=== PATIENT | male | born 1995 | race Caucasian/White ===

== ENCOUNTER 2020-06-30 13:32 | Emergency (ER) | payer OTHER, SELFPAY ==
--- NOTE | ~2020-06-30 | US_ITS ---
EXAMINATION: US VENOUS ULTRASOUND WITH DOPPLER LOWER EXTREMITY, LEFT CLINICAL INFORMATION: Left lower extremity/calf pain. COMPARISON: None TECHNIQUE: Ultrasound of the deep veins is performed from the hip to the calf with compression sonography and color and pulse Doppler assessment. Spectral analysis with color-flow imaging is performed. FINDINGS: There is normal venous compression and respiratory variation and augmented flow. The visualized common femoral vein, superficial femoral vein, profunda femoral vein, popliteal vein, and the trifurcation region shows no evidence of deep venous thrombosis. There is no significant popliteal fossa cyst. If the patient's symptoms persist, followup ultrasound in 5 days 7 days might be of value to exclude proximal propagation from a non-visualized calf vein. US/US venous duplex LE LT IMPRESSION: No DVT demonstrated in the left lower extremity.
[2020-06-30 13:36] VITALS: BP 126/84; PULSE 118; RESP 16; TEMP 37.1; O2SAT 97; BMI 24.9
--- NOTE | 2020-06-30 15:00 | ED.EXTPRO ---
HPI - Extremity Problem General Chief complaint: Extremity Problem Stated complaint: L LEG FOOT PAIN Time Seen by Provider: 06/30/20 13:52 Source: patient Mode of arrival: ambulatory Limitations: no limitations History of Present Illness HPI Narrative: 25 y/o male presenting with left calf pain that started last night when he was walking around at work. He states by the time he ended his shift he was limping out to his car. He denies any known injury or trauma to his leg. He denies hearing or feeling any popping sensation. He denies any skin changes including bruising, redness or warmth. He denies chest pain or SOB. No ankle or knee pain. No numbness, tingling. He is barely able to walk and has significant difficulty with dorsiflexion and plantar flexion. MD Complaint: extremity pain Onset (ago): day(s) (1) Pain Consistency: constant Location: left and lower extremity Severity scale (1-10): 9 Quality: sharp Radiation: proximal Relieving factors: nothing Exacerbating factors: exertion Associated symptoms: denies other symptoms Related Data Previous Rx's Medication Instructions Recorded ibuprofen 800 mg PO Q8H PRN #15 tab 06/30/20 Allergies Allergy/AdvReac Type Severity Reaction Status Date / Time No Known Allergies Allergy Verified 06/30/20 14:23 [No Known Allergies*] Review of Systems Review of Systems: Constitutional: No Fever, No Chills Cardiovascular: No Chest Pain, No SOB Respiratory:No dyspnea Gastrointestinal: No Nausea, No Vomiting Musculoskeletal: No joint pain, + Myalgias Skin: No Skin Lesions, No rash Neuro: + Weakness (cannot plantar flex well), No Numbness Heme/Lymph: No Bruising PMFSH Past Medical History Attestation statement: The following information was validated with the patient. Medical History (Updated 06/30/20 @ 15:31 by SYLVIA Krishnamurthy) Asthma Social History Social History Advance Directives: No Advance Directives Information Provided: Yes Physical Exam Vital Signs: Vital Signs: Last Vital Signs Temp 98.8 F 06/30/20 13:36 Pulse 118 H 06/30/20 13:36 Resp 16 06/30/20 13:36 BP 126/84 06/30/20 13:36 Pulse Ox 97 06/30/20 13:36 Body Mass Index 24.9 Appearance: Alert. Oriented X3. No acute distress. HEENT: normal inspection CVS: Normal heart rate and rhythm. Pulses normal. Respiratory: No respiratory distress. Skin: Skin warm and dry. Normal skin color. Normal skin turgor. No rashes. Extremities: normal appearing left lower leg. tender posterior calf with medial>lateral gastrocnemius tenderness, no skin changes. Achilles tendon palpable. negative Oneil test. NV intact distally. Limited plantar and dorsiflexion of the foot. normal left ankle, no tenderness, normal left knee, normal ROM. Neuro: Oriented X 3. No sensory deficit. Course Course Course Narrative: 25 y/o male presenting with non-traumatic left calf pain x1 day with limited dorsiflexion and plantarflexion. Achilles tendon is palpable with negative Oneil test. Possible partial Achilles tear vs partial gastrocnemious tear vs DVT. U/S ordered to r/o DVT. Reevaluation(s) Reevaluation #1: LE doppler negative for DVT. Given his limited mobility and pain with ambulation, will splint and have him follow up with Orthopedics; concern for possible partial Achilles or gastroc tear. Case was d/w Radha Rojas PA-C from Ortho. Splint and f/u recommended. WBAT. Splint and crutches ordered. Patient aware of plan. Reevaluation #2: Splint placed by tech and is in adequate position. Cap refill <3 sec, +mobility of toes, no numbness. Crutches provided. Stable for discharge with outpatient follow up with Ortho. Consultations Consultation #1: Ortho - Radha Rojas Critical Care Time Critical Care Time Critical Care Time: No Discharge Plan Discharge Clinical Impression: Pain of left calf Patient Disposition: Home, Self-Care Instructions: Tendon Rupture (ED), Leg Pain (ED) Additional Instructions: Your ultrasound is negative for blood clot. Your exam goes against complete rupture of your tendon in your leg but you may have a small or partial tear. Wear the splint that was applied and use crutches until you are evaluated by Orthopedics this week. Elevate you leg when possible and use ice several times per day. Take the prescribed anti-inflammatory as needed for pain. If you have worsening pain or develop swelling or numbness, come back to the ER for further evaluation. Prescriptions: New ibuprofen 800 mg tablet 800 mg PO Q8H PRN (Reason: pain) Qty: 15 RF: 0 Referrals: Dann Rojas PA-C [Physician [employer]] - 2 days (left calf pain)
== END 2020-06-30 16:14 | disposition home or self-care (01) ==
PROVIDERS: Emergency Provider Emergency Medicine
DX: S89.92XA Unspecified injury of left lower leg, initial encounter (principal); R60.0 Localized edema; X58.XXXA Exposure to other specified factors, initial encounter; Y93.9 Activity, unspecified; Y92.9 Unspecified place or not applicable; Y99.9 Unspecified external cause status
CPT/HCPCS: 29515; 93971; 99283

== ENCOUNTER → 2020-07-10 14:59 | Outpatient (BNVA) | payer OTHER, SELFPAY | PROVIDERS: Visit Provider Physician Assistant | DX: S86.112A Strain of other muscle(s) and tendon(s) of posterior muscle group at lower leg level, left leg, initial encounter (principal) | CPT/HCPCS: 99202 ==

== ENCOUNTER → 2020-08-07 13:47 | Outpatient (BNVA) | payer OTHER, SELFPAY | PROVIDERS: Visit Provider Physician Assistant | DX: S86.112A Strain of other muscle(s) and tendon(s) of posterior muscle group at lower leg level, left leg, initial encounter (principal); X58.XXXA Exposure to other specified factors, initial encounter; Y93.9 Activity, unspecified; Y92.9 Unspecified place or not applicable; Y99.8 Other external cause status; J45.909 Unspecified asthma, uncomplicated | CPT/HCPCS: 99212 ==

== ENCOUNTER 2020-08-15 09:47 | Outpatient (REF) | payer OTHER, SELFPAY ==
--- NOTE | ~2020-08-15 | MR_ITS ---
EXAMINATION: MRI ANKLE WITHOUT CONTRAST, LEFT CLINICAL INFORMATION: Posterior ankle pain COMPARISON: None TECHNIQUE: MRI of the ankle without contrast is performed in a 1.5 Elinor high-field scanner. FINDINGS: BONE/JOINTS: Marrow signal is within normal limits. No evidence of fracture. No talar osteochondral lesion seen. No significant arthropathy is evident. MUSCLES/TENDONS: Medial flexor, peroneal, extensor tendons are intact. LIGAMENTS: Talofibular, tibiofibular, calcaneofibular, deltoid ligaments intact. Questionable mild remote sprain anterior talofibular ligament. ACHILLES TENDON: Intact. PLANTAR FASCIA: Intact. SINUS TARSI: Normal signal. TARSAL TUNNEL: No mass lesion. MR/MR ankle LT wo con IMPRESSION: 1. No evidence of acute osseous abnormality. 2. Ligaments appear intact. Questionable sequela of mild remote sprain of the anterior talofibular ligament. 3. Tendons appear intact.
== END 2020-08-15 09:48 | disposition home or self-care (01) ==
LOC: HO.MRI 09:47
PROVIDERS: Visit Provider Physician Assistant
DX: S86.112A Strain of other muscle(s) and tendon(s) of posterior muscle group at lower leg level, left leg, initial encounter (principal)
CPT/HCPCS: 73721

== ENCOUNTER → 2020-08-28 09:55 | Outpatient (BNVA) | payer OTHER, SELFPAY | PROVIDERS: Visit Provider Physician Assistant | DX: S86.112D Strain of other muscle(s) and tendon(s) of posterior muscle group at lower leg level, left leg, subsequent encounter (principal); S93.409D Sprain of unspecified ligament of unspecified ankle, subsequent encounter | CPT/HCPCS: 99212 ==

== ENCOUNTER 2020-09-04 09:57 | Outpatient (RCR) | payer OTHER, SELFPAY ==
--- NOTE | 2020-09-04 13:20 | MHC.PT.EP ---
[facility] [place] Office [place] Office [place] Office [address] Bernardino Ahuja [address] [phone] F: [phone] F: [phone] F: [phone] F: [phone] Physical Therapy Plan of Care Date of Evaluation: Date of Surgery: NA Diagnosis: L GASTROCENEMIUS STRAIN Assessment: Pt IS 25 YO M REFERRED TO PT FROM ORTHO([facility]) WITH GASTROCNEMIUS STRAIN ON L. Pt REPORTS NO SPECIFIC INJURY BUT WAS VERY BUSY (MOVING AND AT WORK) ABOUT 2 MONTHS AGO WITH NOTED PAIN AND INABILITY TO NEGOTIATE STAIRS. Pt HAD MRI ( MR/MR ankle LT wo con IMPRESSION: 1. No evidence of acute osseous abnormality. 2. Ligaments appear intact. Questionable sequela of mild remote sprain of the anterior talofibular ligament. 3. Tendons appear intact.) Pt WAS TOLD HE MAY HAVE A SMALL TEAR AT ACHILLES TENDON. PRESENTS WITH LIMITED ANKLE ROM AND STRENGTH. NO NOTABLE SWELLING. HAS ANTALGIC GT WITH WALKING BOOT. HAS BEEN INSTRUCTED BY ORTHO TO WEAN FROM BOOT WHICH HE REPORTS HE IS SLOWLY DOING AT HOME BUT CONTINUES USE OF BOOT WHILE AT WORK. SHOULD BENEFIT FROM PT TO ADDRESS THESE ISSUES Frequency and Duration: The patient will be seen 2X/WK X 6 WKS Short Term Goals: 1. I HEP WITH DC EX PLAM 2. GT WITHOUT BOOT WITH NO LIMP 3. INCREASED AWARENESS ANKLE CARE WITH I TAPING IF INDICATED Correction Goals: 1. INCREASED L ANKLE ROM 10-20 DEGREES T/O 2. INCREASED L ANKLE STRENGTH 1/2 - 1 MM GRADE 3. DECREASED L ANKLE PAIN AT LEAST 50% WITH ADLS Treatment Plan: Modalities to reduce pain, spasms and effusion. Manual therapy to restore motion and function. Therapeutic exercise to improve strength and flexibility. Neuromuscular re-education for posture and balance. Therapeutic activities to return to functional activities of daily living. Electronically signed by: MANDY SOLER PT Please sign and return to therapist. Thank you for your referral.
--- NOTE | 2020-10-28 11:13 | MHC.PT.DC ---
[facility] [place] Office [place] Office [place] Office [address] Bernardino Ahuja [address] [phone] F: [phone] F: [phone] F: [phone] F: [phone] Physical Therapy Discharge Report Diagnosis: L GASTROCENEMIUS STRAIN Date of Surgery: NA Date of Evaluation: 09/04/20 Date of Discharge: 10/28/20 Treatments to Date: 1 Cancellations to Date: No Shows to Date: 2 Discharge Status: Visit Non-compliance Discharge Summary: Pt SEEN FOR IN EVAL THEN NO SHOWED FOR HIS NEXT 2 APPTS. AT IN [place], PER ASSESSMENT: Pt IS 25 YO M REFERRED TO PT FROM ORTHO([facility]) WITH GASTROCNEMIUS STRAIN ON L. Pt REPORTS NO SPECIFIC INJURY BUT WAS VERY BUSY (MOVING AND AT WORK) ABOUT 2 MONTHS AGO WITH NOTED PAIN AND INABILITY TO NEGOTIATE STAIRS. Pt HAD MRI ( MR/MR ankle LT wo con IMPRESSION: 1. No evidence of acute osseous abnormality. 2. Ligaments appear intact. Questionable sequela of mild remote sprain of the anterior talofibular ligament. 3. Tendons appear intact.) Pt WAS TOLD HE MAY HAVE A SMALL TEAR AT ACHILLES TENDON. PRESENTS WITH LIMITED ANKLE ROM AND STRENGTH. NO NOTABLE SWELLING. HAS ANTALGIC GT WITH WALKING BOOT. HAS BEEN INSTRUCTED BY ORTHO TO WEAN FROM BOOT WHICH HE REPORTS HE IS SLOWLY DOING AT HOME BUT CONTINUES USE OF BOOT WHILE AT WORK. SHOULD BENEFIT FROM PT TO ADDRESS THESE ISSUES Electronically signed by: MANDY SOLER PT Please sign and return to therapist. Thank you for your referral.
== END 2020-10-28 11:14 | disposition home or self-care (01) ==
LOC: HO.PTWFD 09:57
PROVIDERS: Visit Provider Physician Assistant
DX: S86.112D Strain of other muscle(s) and tendon(s) of posterior muscle group at lower leg level, left leg, subsequent encounter (principal)
CPT/HCPCS: 97110; 97116; 97140; 97162

== ENCOUNTER 2021-11-20 15:14 | Emergency (ER) | payer OTHER, SELFPAY ==
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
[2021-11-20 16:35] VITALS: BP 107/74; PULSE 80; RESP 18; TEMP 36.6; O2SAT 97; BMI 26.6
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
[2021-11-21 10:24] VITALS: BP 102/68; PULSE 77; RESP 18; O2SAT 97
== END 2021-11-21 10:29 | disposition home or self-care (01) ==
PROVIDERS: Emergency Provider Emergency Medicine Emergency Medical Services
DX: S43.401A Unspecified sprain of right shoulder joint, initial encounter (principal); V43.62XA Car passenger injured in collision with other type car in traffic accident, initial encounter; Y93.9 Activity, unspecified; Y92.410 Unspecified street and highway as the place of occurrence of the external cause; Y99.9 Unspecified external cause status; Z79.899 Other long term (current) drug therapy
CPT/HCPCS: 73030; 99283

== ENCOUNTER 2022-06-16 20:08 | Emergency (ER) | payer OTHER, SELFPAY ==
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
[2022-06-16 20:32] VITALS: BP 127/93; PULSE 81; RESP 16; TEMP 36.8; O2SAT 97; BMI 26.6
[2022-06-16 20:53] LABS: MANUAL DIFF FLAG NO
[2022-06-16 20:56] LABS: Basophils Absolute Auto 0.1 X10*3/uL (0.0-0.2); Basophils Percent Auto 0.4 % (0-2); Eosinophils Absolute Auto 0.4 X10*3/uL (0.0-0.4); Eosinophils Percent Auto 3.3 % (0-4); Hematocrit 43.9 % (42.0-52.0); Hemoglobin 14.7 g/dl (14.0-18.0); Imm Gran Abs Auto 0.03 X10*3/uL (0.00-0.03); Imm Gran Pct Auto 0.2 % (0.0-0.4); Lymphocytes Absolute Auto 2.1 X10*3/uL (1.2-4.9); Lymphocytes Percent Auto 16.2 % (20-40); Mean Corpuscular HGB Conc 33.5 g/dl (31.0-36.0); Mean Corpuscular Hemoglobin 29.3 pg (27.0-33.0); Mean Corpuscular Volume 87.5 fL (80.0-98.0); Mean Platelet Volume 9.2 fL (9.4-12.4); Monocytes Absolute Auto 0.6 X10*3/uL (0.1-1.2); Monocytes Percent Auto 4.5 % (2-11); Neutrophils Percent Auto 75.4 % (45-73); Platelet Count 310 X10*3/uL (160-400); Red Blood Count 5.02 X10*6/uL (4.60-5.80); Red Cell Distribution Width 12.2 % (11.0-16.0); White Blood Count 13.2 X10*3/uL (4.8-10.8)
[2022-06-16 21:07] LABS: Alanine Aminotransferase 87 U/L (0-40); Albumin Level 4.7 g/dL (3.5-5.0); Alkaline Phosphatase 92 U/L (39-117); Anion Gap 12 (12-20); Aspartate Amino Transferase 51 U/L (5-37); Bilirubin Direct 0.3 mg/dL (0.0-0.5); Bilirubin Total 0.9 mg/dL (0.0-1.0); Blood Urea Nitrogen 10 mg/dL (9-16); Calcium 9.9 mg/dL (8.4-10.2); Carbon Dioxide 29 mmol/L (22-29); Chloride 103 mmol/L (96-108); Creatinine Clr Calc Pharmacy 112.9; Estimated Glomerular Filt Rate > 60; Glucose Random 100 mg/dL (60-115); Magnesium 1.8 mg/dL (1.6-2.6); Potassium 4.5 mmol/L (3.3-5.1); Sodium 139 mmol/L (135-145); Total Protein 7.5 g/dL (6.5-8.0)
[2022-06-16] MEDS: iohexoL 350 MG/ML 100 ML INFUS..BTL IV (21:37)
--- NOTE | 2022-06-16 22:50 | PC.NURSE ---
pt awaiting CT scan,pt sleeping, resps even and unlabored. awaiting ED provider assignment
--- NOTE | 2022-06-16 22:53 | PC.NURSE ---
20G Iv in place- chemistry's resulted- ct notified
--- NOTE | 2022-06-16 22:54 | PC.NURSE ---
CT scan taken- awaiting results
[2022-06-17] MEDS: Ketorolac Tromethamine 30 MG/ML VIAL IVPUSH (00:25)
== END 2022-06-17 00:36 | disposition home or self-care (01) ==
PROVIDERS: Physician Assistant; Emergency Provider Emergency Medicine; PCP Pediatrics
DX: S20.213A Contusion of bilateral front wall of thorax, initial encounter (principal); R51.9 Headache, unspecified; M54.2 Cervicalgia; R10.2 Pelvic and perineal pain; V43.52XA Car driver injured in collision with other type car in traffic accident, initial encounter; Y93.9 Activity, unspecified; Y92.410 Unspecified street and highway as the place of occurrence of the external cause; Y99.9 Unspecified external cause status; Z79.899 Other long term (current) drug therapy
CPT/HCPCS: 36415; 70450; 71260; 72125; 74177; 80048; 80076; 83735; 85025; 96374; 99284; J1885; Q9967

== ENCOUNTER 2022-12-16 13:31 | Emergency (ER) | payer MEDICAID, SELFPAY ==
--- NOTE | ~2022-12-16 | XR_ITS ---
EXAMINATION: XR CHEST CLINICAL INFORMATION: Wheezing, cough and shortness of breath COMPARISON: 06/16/[address] TECHNIQUE: 2 views of the chest were obtained. FINDINGS: No significant abnormality is noted involving the heart, lungs, mediastinum, bony thorax or soft tissues. XR/XR chest 2V IMPRESSION: Unremarkable examination.
[2022-12-16 14:19] VITALS: BP 127/81; PULSE 110; RESP 20; TEMP 36.8; O2SAT 93; BMI 26.6
--- NOTE | 2022-12-16 14:21 | ED_ITS ---
HPI - SOB/Dyspnea General Chief Complaint: Upper Respiratory Symptoms Stated Complaint: cough/ wheezing Time Seen by Provider: 12/16/22 17:28 Source: patient Mode of arrival: ambulatory Limitations: no limitations History of Present Illness HPI Narrative: This is a 27-year-old male history of asthma presenting with shortness of breath, wheezing, productive cough of yellow/green sputum x2 weeks worsening. He reports hears himself wheezing and he has been coughing a lot which is very uncomfortable. Denies chest pain, fevers, chills, nausea, vomiting, abdominal pain, headache, vision changes, dizziness and weakness. Reports multiple children at home sick with similar symptoms. Related Data Previous Rx's Medication Instructions Recorded ibuprofen 800 mg tablet 800 mg PO Q8H PRN pain #15 tabs 06/30/20 cyclobenzaprine 10 mg tablet 10 mg PO TID PRN muscle spasm 7 11/21/21 days #21 tabs naproxen 500 mg tablet 500 mg PO BID PRN pain 10 days #20 11/21/21 tabs prednisone 20 mg tablet 40 mg (2 x 20 mg) PO DAILY 5 days 11/21/21 #10 tabs cyclobenzaprine 10 mg tablet 10 mg PO TID PRN muscle spasm #7 06/16/22 tabs ibuprofen 600 mg tablet 600 mg PO TID PRN fever or pain 06/16/22 #14 tabs albuterol sulfate 90 mcg/actuation 2 inh inhalation Q4-6H PRN 12/16/22 breath activated powder inhaler shortness of breath or wheezing #1 ea doxycycline hyclate 100 mg capsule 100 mg PO BID 10 days #20 caps 12/16/22 prednisone 50 mg tablet 50 mg PO DAILY 5 days #5 tabs 12/16/22 Allergies Allergy/AdvReac Type Severity Reaction Status Date / Time No Known Allergies Allergy Verified 12/16/22 14:23 [No Known Allergies*] Review of Systems Review of Systems: Constitutional : No Weight loss, No Fever, No Chills, No Fatigue, No Malaise ENT/Mouth : No sore throat, No Rhinorrhea Eyes: No Eye Pain, No Swelling, No Redness Cardiovascular : No Chest Pain, + SOB, No Dyspnea on Exertion, No Orthopnea, No Edema, No Palpitations Respiratory : + Cough, + Sputum, + Wheezing Gastrointestinal : No Nausea, No Vomiting, No Diarrhea, No Constipation, No abdominal Pain, No Hematochezia, No Melena Genitourinary : No Dysuria, No Urinary Frequency, No Hematuria, Musculoskeletal : No joint pain, No Myalgias, No Joint Swelling Skin : No Skin Lesions, No rash Neuro : No Weakness, No Numbness, No Dizziness, No Headache Psych : No Anxiety/Panic, No Depression All other systems reviewed and are negative Yes all other systems are reviewed and are negative [facility] Past Medical History Medical History Asthma Social History Social History Alcohol intake: current Alcohol intake frequency: holidays/special occasions only Patient Tobacco Use Status: Never used Tobacco Smoked in Last 30 Days: No Use of substances other than those prescribed or required for medical reasons: No Advance Directives: No Advance Directives Information Provided: No Current occupational status: employed 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 Appearance: Alert.? Oriented X3.? No acute distress.? Speaking in full sentences controlling secretions well. No use of intercostal muscles or accessory muscles for breathing. Head: Normocephalic, atraumatic, no step-offs or deformities Eyes: Pupils equal, round and reactive to light.? ENT: Pharynx normal.? Neck: Normal inspection.? Neck supple.? CVS: Normal heart rate and rhythm.? Pulses normal.? Respiratory: No respiratory distress.? Breath sounds with significant expiratory wheezing bilaterally..? Abdomen: Soft and nontender.? Skin: Skin warm and dry.? Normal skin color.? Normal skin turgor.? Extremities: No lower extremity edema.? No calf ttp. 5/5 strength to bilateral upper and lower extremities Neuro: Oriented X 3.? No motor deficit.? No sensory deficit. CN 2-12 intact Course Course Course Narrative: RME - 27 yo male with history of childhood asthma presents to the ER for evaluation of productive cough, SOB and wheezing for the last 2 weeks after getting a cold from his children. Cough keeping him up at night. +chest wall pain w/ coughing only. HR 110 in triage, SpO2 92-95%, speaking in complete sentences and in no distress. Wheezy throughout Plan: CXR, ED bronch protocol and prednisone. Reevaluation(s) Reevaluation #1: X-ray no acute findings, no signs of pneumonia. Flu COVID RSV ordered and pending. On re-evaluation patient is still having wheezing, gave magnesium which seemed to have helped. Patient now saturating 97%, no signs of acute respiratory distress. Will treat him for bacterial bronchitis at this time with doxycycline, albuterol inhaler, prednisone. Educated patient on diagnosis and treatment plan, answered all question, patient verbalizes understanding. At this time patient will be discharged home, advised to return with new or worsening symptoms. Educated on worrisome signs and symptoms and when to return. At this time I feel comfortable discharge home. Will call him if flu/COVID/RSV is positive. Time: 19:35 Medications Administered Generic Name Dose Route Start Last Admin Trade Name Freq PRN Reason Stop Dose Admin Magnesium Sulfate 2 gm in 50 mls @ 25 mls/hr 12/16/22 18:15 12/16/22 18:46 Magnesium Sulfate/H2o IV 12/16/22 20:14 25 mls/hr ONCE ONE Administration Discontinued Medications Generic Name Dose Route Start Last Admin Trade Name Freq PRN Reason Stop Dose Admin Albuterol Sulfate 5 mg/ 7.5 mg 12/16/22 16:21 12/16/22 16:28 Albuterol Sulfate 2.5 mg INHALE 12/16/22 16:22 7.5 mg ONCE ONE Administration Albuterol Sulfate 5 mg/ 0 mg 12/16/22 15:48 12/16/22 15:54 Albuterol/Ipratropium 3 ml INHALE 12/16/22 15:49 5 each ONCE ONE Administration Prednisone 50 mg 12/16/22 14:22 12/16/22 16:40 Prednisone 10 Mg Tablet PO 12/16/22 14:23 50 mg ONCE ONE Administration Medical Decision Making Medical Decision Making [facility] Narrative: [age]-year-old male presents with shortness of breath and wheezing x2 weeks now experiencing productive cough. Multiple sick contacts at home. Physical exam with wheezing. Concerns of asthma versus bronchitis versus viral illness. Unlikely PE, pneumonia, acute respiratory distress, ACS. Plan imaging, viral testing. Differential Diagnosis Differential Diagnoses: The differential diagnosis associated with the presentation includes Concerns of asthma versus bronchitis versus viral illness. Unlikely PE, pneumo lisa, acute respiratory distress, ACS. Admission/Observation Consideration of admission/observation: Escalation of care including admission /observation considered Unlikely Independent Interpretation I performed an independent interpretation of an: Plain X-Ray (FINDINGS: No significant abnormality is noted involving the heart, lungs, mediastinum, bony thorax or soft tissues. XR/XR chest 2V IMPRESSION: Unremarkable examination.) Radiology Impression Discussion of test interpretation with radiology: I have reviewed the radiologist's reading. Prescription Management I considered prescription management with: Pain Medication and Antibiotic Chronic Conditions Patient?s care impacted by: Other (asthma ) Critical Care Time Critical Care Time Critical Care Time: No Discharge Plan Discharge Clinical Impression: Bronchitis Patient Disposition: Home, Self-Care Instructions: Acute Bronchitis (ED) Additional Instructions: Take your medications as prescribed. If you were prescribed antibiotics today, it is important that you take your medication to their entirety, do not skip any doses, do not finish them early. Follow-up with your primary care provider this week. Return to the emergency department with new or worsening symptoms. In case of emergency call 911 Prescriptions: New doxycycline hyclate 100 mg capsule 100 mg PO BID 10 Days Qty: 20 0RF albuterol sulfate 90 mcg/actuation aerosol powdr breath activated 2 inh inhalation Q4-6H PRN (Reason: shortness of breath or wheezing) Qty: 1 0RF prednisone 50 mg tablet 50 mg PO DAILY 5 Days Qty: 5 0RF No Action ibuprofen 800 mg tablet 800 mg PO Q8H PRN (Reason: pain) Qty: 15 0RF naproxen 500 mg tablet 500 mg PO BID PRN (Reason: pain) 10 Days Qty: 20 0RF prednisone 20 mg tablet 40 mg PO DAILY 5 Days Qty: 10 0RF cyclobenzaprine 10 mg tablet 10 mg PO TID PRN (Reason: muscle spasm) 7 Days Qty: 21 0RF Rx Instructions: side effect is drowsiness. Do not take at work or while driving. ibuprofen 600 mg tablet 600 mg PO TID PRN (Reason: fever or pain) Qty: 14 0RF cyclobenzaprine 10 mg tablet 10 mg PO TID PRN (Reason: muscle spasm) Qty: 7 0RF Referrals: Physician,None [Primary Care Provider] - 2 days Stand Alone Forms: Work/School Release
[2022-12-16] MEDS: Albuterol Sulfate 5 MG, Albuterol/Iprat 2.5/0.5MG 3 ML 3 ML INHALE (15:54)
[2022-12-16 15:55] VITALS: PULSE 109; RESP 20; O2SAT 93
[2022-12-16] MEDS: Albuterol Sulfate 5 MG, Albuterol Sulfate (0.083%) 2.5 MG 7.5 MG INHALE (16:28)
[2022-12-16 16:29] VITALS: PULSE 139; RESP 22; O2SAT 95
[2022-12-16] MEDS: predniSONE 10 MG TABLET 50 MG PO (16:40)
[2022-12-16 17:31] VITALS: O2SAT 97
[2022-12-16] MEDS: Magnesium Sulfate/H2O 2 GM/50 ML PIGGYBACK IV (18:46)
[2022-12-16 19:55] VITALS: BP 100/59; PULSE 123; RESP 18; TEMP 37.3; O2SAT 97
[2022-12-16 20:22] LABS: Influenza A PCR NEGATIVE (Negative); Influenza B PCR NEGATIVE (Negative); Resp Syncy Virus RNA Qual PCR NEGATIVE (Negative); SARS COV2 PCR INHOUSE NEGATIVE (Negative)
== END 2022-12-16 20:21 | disposition home or self-care (01) ==
PROVIDERS: Physician Assistant; Emergency Provider Student in an Organized Health Care Education/Training Program
DX: J40 Bronchitis, not specified as acute or chronic (principal); R06.02 Shortness of breath; Z20.822 Contact with and (suspected) exposure to COVID-19; Z20.828 Contact with and (suspected) exposure to other viral communicable diseases
CPT/HCPCS: 0241U; 71046; 94640; 96365; 96367; 99284; 99285; J3475